=== PATIENT | female | born 1960 | race Caucasian/White ===

== ENCOUNTER 2016-07-22 11:45 | Day surgery (SDC) | payer BC ==
[~2016-07-22 11:45] MED LIST: LORazepam 2 MG/ML MDV IVPUSH ONE; Lactated Ringers 1,000 ML IV SCH; Lidocaine 1%/Sod Bicarbonate in NS 8.4% 1 ML Syringe IV PRN; Sodium Chloride 0.9% 10 ML Syringe FLUSH PRN
--- NOTE | 2016-07-22 12:44 | PCM.PREANE ---
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 banding) GI: Reports: no symptoms (GERD), difficulty swallowing Other: Reports: thyroid problems (hypothyroid), throat pain (with GERD symptoms) - PHYSICAL ASSESSMENT HR: 70 O2 Sat by Pulse Oximetry: 96 RR: 16 BP: 149/96 Temp: 37.6 C Vital Signs: Last Vital Signs Temp 37.6 C 07/22/16 12:15 Pulse 70 07/22/16 12:15 Resp 16 07/22/16 12:15 BP 149/96 H 07/22/16 12:15 Pulse Ox 96 07/22/16 12:15 Height: 1.63 m Weight: 121.563 kg NPO Status Date: 07/22/16 NPO Status Time: 01:30 ASA Class: 3 Mental Status: alert & oriented x3 Airway Class: Mallampati = 2 Dentition: Reports: normal dentition, caries Thyro-Mental Finger Breadths: 3 Mouth Opening Finger Breadths: 3 ROM/Head Extension: full Respiratory Status: lungs clear to auscultation bilaterally Cardiovascular Status: regular rate & rhythm, normal S1, S2, no murmur - IMAGING/EKG Impressions: EKG: sinus rhythm - ALLERGIES Allergies/Adverse Reactions: Allergies Allergy/AdvReac Type Severity Reaction Status Date / Time metronidazole [From Flagyl] Allergy Rash Verified 05/01/16 22:48 Penicillins Allergy Anaphylactic Verified 05/01/16 22:48 Shock Tetracyclines Allergy Rash Verified 05/01/16 22:48 - ANESTHESIA PLAN Preop Beta Tiara: No Anesthesia Type Planned: MAC - ACKNOWLEDGEMENTS Pt an appropriate candidate for the planned anesthesia: Yes Alternatives and risks of anesthesia discussed w pt/guardian: Yes Pt/Guardian understands and agree with anesthesia plan: Yes PreAnesthesia Questionnaire HEENT History: Reports: Allergic rhinitis Cardiovascular History: Reports: High cholesterol, Hypertension Other Gastrointestinal History: colitis, dysphagia Psychiatric History: Reports: Anxiety Endocrine/Metabolic History: Reports: Hypothyroidism, Obesity/BMI 30+ Other Hematologic History: vitamin d deficiency Oncologic (Cancer) History: Reports: Squamous cell carcinoma - Infectious Disease History Infectious Disease History: Reports: Chicken pox, Mumps - Past Surgical History HEENT Surgical History: Reports: Tonsillectomy GI Surgical History: Reports: Other (see below) Other GI Surgeries/Procedures: lap band surgery in 2008 Female Surgical History: Reports: Hysterectomy, Oophorectomy - SUBSTANCE USE Smoking Status *Q: Never Smoker Second Hand Smoke Exposure: No Days Per Week of Alcohol Use: 0 Recreational Drug Use History: No - HOME MEDS Home Medications: Home Meds Levothyroxine Sodium [Synthroid] 200 mcg PO DAILY 05/01/16 [History] Lisinopril 20 mg PO DAILY 05/01/16 [History] - CURRENT (IN HOUSE) MEDS Current Meds: Current Medications Lactated Ringer's (Ringers, Lactated) 1,000 mls @ 125 mls/hr IV ASDIRECTED MARGARET Stop: 07/22/16 23:00 Last Admin: 07/22/16 12:30 Dose: 125 mls/hr Lidocaine/Sodium Bicarbonate (Buffered Lidocaine 1% In Ns 8.4%) 0.25 ml IV ONETIME PRN PRN Reason: Prior to IV Start Stop: 07/22/16 18:00 Last Admin: 07/22/16 12:30 Dose: 0.25 ml Sodium Chloride (Saline Flush) 10 ml FLUSH ASDIRECTED PRN PRN Reason: Keep Vein Open Stop: 07/22/16 18:00 Discontinued Medications Lorazepam (Ativan) 0.5 mg IVPUSH ONETIME ONE Stop: 07/21/16 08:46
[2016-07-22] MEDS ORDERED: Propofol 200 MG/20 ML SDV ONE ×2 (13:42→14:19)
[2016-07-22] MEDS ORDERED: Lidocaine 1% 2 ML SDV ONE ×2 (13:48)
--- NOTE | 2016-07-22 14:15 | PCM.OPNOTE ---
- General Post-Op/Procedure Note Date of Surgery/Procedure: 07/22/16 Operative Procedure(s): Esophagogastroduodenoscopy with proximal and distal esophageal biopsies x2 using cold forceps Findings: Normal endoscopy with no complication seen from the lap band. Pre Op Diagnosis: Dysphagia with history of GERD Post-Op Diagnosis: Same Anesthesia Technique: MAC, Moderate sedation Primary Surgeon: Yefri Hill Pathology: Proximal and distal esophageal biopsies for histologic review EBL in mLs: 0 Complications: None Condition: Good Free Text/Narrative:: After adequate IV sedation and analgesia was obtained the patient was placed on her left side. Through a bite block a lubricated upper endoscope was inserted into the esophagus and advanced under direct vision to the stomach. Air was given here, followed by entry into the duodenum. The first and second parts of the duodenum were endoscopically normal with no inflammation seen. The antrum was unremarkable as well. In the retroflexed view I could see the presence of the LAP-BAND extrinsically. The fundus was normal. The body of the stomach was normal as well. There were no erosions from the band seen. The scope was drawn to the GE junction, which was sharp, and was without inflammation. Nevertheless , I took two biopsies for evaluation. The body of the esophagus was unremarkable and I biopsied the proximal esophagus as well. Photographs were taken for the patient and for the record. Air was removed, as I finished the procedure, which she tolerated well.
[2016-07-22 14:17] VITALS: BP 138/87
--- NOTE | 2016-07-22 14:18 | PCM48HPAN ---
Post Anesthesia Note - EVALUATION WITHIN 48HRS OF ANESTHETIC Vital Signs in Normal Range: Yes Patient Participated in Evaluation: Yes Respiratory Function Stable: Yes Airway Patent: Yes Cardiovascular Function Stable: Yes Hydration Status Stable: Yes Pain Control Satisfactory: Yes Nausea and Vomiting Control Satisfactory: Yes Mental Status Recovered: Yes
== END 2016-07-22 14:40 | disposition home or self-care (01) ==
LOC: JD.SDS 11:45
PROVIDERS: ATTEND Surgery
PROC: 0DB38ZX Excision of Lower Esophagus, Via Natural or Artificial Opening Endoscopic, Diagnostic (ICD-10-PCS; principal; 2016-07-22)
PROC: 0DB18ZX Excision of Upper Esophagus, Via Natural or Artificial Opening Endoscopic, Diagnostic (ICD-10-PCS; 2016-07-22)
DX: R13.10 Dysphagia, unspecified (principal); R12 Heartburn; J30.9 Allergic rhinitis, unspecified; I10 Essential (primary) hypertension; E78.00 Pure hypercholesterolemia, unspecified; E66.01 Morbid (severe) obesity due to excess calories; E55.9 Vitamin D deficiency, unspecified; E03.9 Hypothyroidism, unspecified; Z88.1 Allergy status to other antibiotic agents; Z88.0 Allergy status to penicillin; Z79.899 Other long term (current) drug therapy
CPT/HCPCS: 43239; 88305; J7120; J2704

== ENCOUNTER 2017-02-17 11:16 | Day surgery (SDC) | payer BC ==
[~2017-02-17 11:16] MED LIST changes: -LORazepam 2 MG/ML MDV IVPUSH ONE; -Lidocaine 1%/Sod Bicarbonate in NS 8.4% 1 ML Syringe IV PRN; +Lidocaine 1%/Sod Bicarbonate in NS 8.4% 1 ML Syringe PRN
[2017-02-17] MEDS ORDERED: Lidocaine 1% 50 ML MDV ONE (12:23)
[2017-02-17] MEDS ORDERED: Bupivacaine 0.5% 30 ML SDV ONE (12:24)
--- NOTE | 2017-02-17 12:24 | PCM.PREANE ---
Preanesthetic Assessment - Procedure Proposed Procedure: Anoscopy with botox injection and rubber band ligation - Anesthesia/Transfusion/Family Hx Anesthesia History: Prior Anesthesia Without Reaction Type of Anesthesia Reaction: Excessive Nausea/Vomiting (with general anesthetic ) Family History of Anesthesia Reaction: No Transfusion History: No Prior Transfusion(s) - Review of Systems General: No Symptoms Pulmonary: No Symptoms Cardiovascular: No Symptoms Gastrointestinal: No Symptoms Neurological: No Symptoms Other: Reports: None - Physical Assessment NPO Status Date: 02/16/17 NPO Status Time: 20:00 Pulse: 84 O2 Sat by Pulse Oximetry: 97 Respiratory Rate: 16 Blood Pressure: 159/98 Temperature: 37.2 C Height: 1.63 m Weight: 121.563 kg ASA Class: 2 Mental Status: Alert & Oriented x3 Airway Class: Mallampati = 2 Dentition: Reports: Normal Dentition Thyro-Mental Finger Breadths: 3 ROM/Head Extension: Full Lungs: Clear to Auscultation, Normal Respiratory Effort Cardiovascular: Regular Rate, Regular Rhythm - Allergies Allergies/Adverse Reactions: Allergies Allergy/AdvReac Type Severity Reaction Status Date / Time metronidazole [From Flagyl] Allergy Rash Verified 02/16/17 14:02 Penicillins Allergy Anaphylactic Verified 02/16/17 14:02 Shock Tetracyclines Allergy Rash Verified 02/16/17 14:02 - Blood Blood Available: No Product(s) Available: None - Anesthesia Plan Pre-Op Medication Ordered: None - Acknowledgements Anesthesia Type Planned: MAC Pt an Appropriate Candidate for the Planned Anesthesia: Yes Alternatives and Risks of Anesthesia Discussed w Pt/Guardian: Yes Pt/Guardian Understands and Agrees with Anesthesia Plan: Yes PreAnesthesia Questionnaire HEENT History: Reports: Allergic Rhinitis, Other (See Below) Other HEENT History: dysphagia glasses Cardiovascular History: Reports: High Cholesterol, Hypertension Respiratory History: Reports: None Gastrointestinal History: Reports: Hemorrhoids Other Gastrointestinal History: colitis, dysphagia, hemorrhoidectomy, anal fissure, constipation 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 Musculoskeletal History: Reports: Other (See Below) Other Musculoskeletal History: knee joint effusion and pain Neurological History: Reports: Migraines Psychiatric History: Reports: Anxiety, Other (See Below) Other Psychiatric History: fatigue Endocrine/Metabolic History: Reports: Hypothyroidism, Obesity/BMI 30+, Vitamin D Deficiency Hematologic History: Reports: None Other Hematologic History: vitamin d deficiency Immunologic History: Reports: None Oncologic (Cancer) History: Reports: Squamous Cell Carcinoma Dermatologic History: Reports: None - Infectious Disease History Infectious Disease History: Reports: Chicken Pox, Mumps - Past Surgical History Head Surgeries/Procedures: Reports: None HEENT Surgical History: Reports: Tonsillectomy Cardiovascular Surgical History: Reports: None Respiratory Surgical History: Reports: None GI Surgical History: Reports: Appendectomy, Bariatric Procedure, Other (See Below) Other GI Surgeries/Procedures: lap band surgery in 2008 Female Surgical History: Reports: Hysterectomy, Oophorectomy Neurological Surgical History: Reports: None Dermatological Surgical History: Reports: None - SUBSTANCE USE Smoking Status *Q: Never Smoker Second Hand Smoke Exposure: No Days Per Week of Alcohol Use: 0 Recreational Drug Use History: No - HOME MEDS Home Medications: Home Meds Chromium Picolinate 200 mcg PO DAILY 02/16/17 [History] Levothyroxine Sodium [Synthroid] 200 mcg PO QAM 02/16/17 [History] Levothyroxine [Synthroid] 25 mcg PO QAM 02/16/17 [History] Lisinopril [Lisinopril] 10 mg PO DAILY 02/16/17 [History] Simvastatin [Zocor] 20 mg PO BEDTIME 02/16/17 [History] metFORMIN [Glucophage XR] 1,000 mg PO BEDTIME 02/16/17 [History] - CURRENT (IN HOUSE) MEDS Current Meds: Current Medications Lactated Ringer's (Ringers, Lactated) 1,000 mls @ 125 mls/hr IV ASDIRECTED MARGARET Stop: 02/17/17 23:00 Lidocaine/Sodium Bicarbonate (Buffered Lidocaine 1% In Ns 8.4%) 0.25 ml .XX ONETIME PRN PRN Reason: Prior to IV Start Stop: 02/17/17 18:00 Sodium Chloride (Saline Flush) 10 ml FLUSH ASDIRECTED PRN PRN Reason: Keep Vein Open Stop: 02/17/17 18:00
[2017-02-17] MEDS ORDERED: Sodium Chloride 0.9% 10 ML ONE (13:01)
[2017-02-17] MEDS ORDERED: Midazolam 1 MG/ML 2 ML SDV ONE (13:07)
[2017-02-17] MEDS ORDERED: Propofol 200 MG/20 ML SDV ONE (13:07)
[2017-02-17] MEDS ORDERED: fentaNYL 100 MCG/2 ML SDV ONE (13:07)
[2017-02-17] MEDS ORDERED: Lidocaine 1% 4 ML ONE (13:09)
--- NOTE | 2017-02-17 13:43 | PCM.OPNOTE ---
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 Perianal inspection and digital rectal examination revealed no hemorrhoids but there was an obvious anterior anal fissure with exposed underlying internal sphincteric muscular tissue. There was no sentinel tag. There were no fistulas seen as well. 15 units of Botox were injected into the internal sphincter in 4 quadrants for total dose of 60 units. There were no complications.
[2017-02-17 13:48] VITALS: BP 132/88
== END 2017-02-17 14:22 | disposition home or self-care (01) ==
LOC: JD.SDS 11:16
PROVIDERS: ATTEND Surgery
PROC: 3E023GC Introduction of Other Therapeutic Substance into Muscle, Percutaneous Approach (ICD-10-PCS; principal; 2017-02-17)
DX: K60.1 Chronic anal fissure (principal); I10 Essential (primary) hypertension; E78.00 Pure hypercholesterolemia, unspecified; E03.9 Hypothyroidism, unspecified; E55.9 Vitamin D deficiency, unspecified; E66.01 Morbid (severe) obesity due to excess calories; K59.00 Constipation, unspecified; F41.9 Anxiety disorder, unspecified; Z79.84 Long term (current) use of oral hypoglycemic drugs; Z79.899 Other long term (current) drug therapy; Z88.0 Allergy status to penicillin; Z88.1 Allergy status to other antibiotic agents; Z90.49 Acquired absence of other specified parts of digestive tract; Z90.710 Acquired absence of both cervix and uterus; Z90.89 Acquired absence of other organs; Z98.84 Bariatric surgery status
CPT/HCPCS: 46505; J0585; J2250; J3010; J7120; 00902; J2704